=== PATIENT | male | born 1940 | race Caucasian/White ===

== ENCOUNTER → 2017-02-08 | Outpatient (CLI) | payer MEDICARE ==
[2017-02-08 12:09] LABS: ALT 101 U/L (21-72); AST 97 U/L (17-59); Cholesterol 149 mg/dL (<200); HDL Cholesterol 48 mg/dL (40-60); Triglycerides 61 mg/dL (<150)
== END | disposition home or self-care (01) ==
LOC: LABWHC1 10:56
PROVIDERS: ATTEND Family Medicine
DX: E78.00 Pure hypercholesterolemia, unspecified (principal)
CPT/HCPCS: 36415; 80061; 84450; 84460

== ENCOUNTER → 2017-02-12 | Outpatient (CLI) | payer MEDICARE ==
[2017-02-12 09:51] LABS: CH 33.4; CHCM 33.6; HCT 45.6 % (39.0-53.0); HDW 2.32; HGB 15.1 gm/dL (13.0-17.5); MCH 33.2 pg (25.0-35.0); MCHC 33.2 g/dL (31.0-37.0); Mean Platelet Volume 8.4; RBC 4.56 m/uL (4.30-5.90); RDW 12.7 % (11.5-15.5); WBC 5.5 k/uL (3.8-10.6)
[2017-02-12 10:11] LABS: ALT 95 U/L (21-72); AST 76 U/L (17-59); Alkaline Phosphatase 88 U/L (38-126); Anion Gap 8 mmol/L; Blood Urea Nitrogen 18 mg/dL (9-20); Calcium 8.7 mg/dL (8.4-10.2); Carbon Dioxide 25 mmol/L (22-30); Chloride 109 mmol/L (98-107); Cholesterol 133 mg/dL (<200); GGT 32 U/L (15-73); Glucose 102 mg/dL (74-99); HDL Cholesterol 44 mg/dL (40-60); Non-African American GFR(MDRD) >60 (>60 ml/min/1.73 sqM); Potassium 4.2 mmol/L (3.5-5.1); Sodium 142 mmol/L (137-145); Total Bilirubin 0.9 mg/dL (0.2-1.3); Total Protein 6.6 g/dL (6.3-8.2); Triglycerides 94 mg/dL (<150)
[2017-02-12 10:41] LABS: Hepatitis B Surface Ag Index 0.06
[2017-02-12 10:47] LABS: Hepatitis B Core IgM Index 0.04
[2017-02-12 10:58] LABS: Hepatitis C Virus IgG Index 0.05
[2017-02-12 11:01] LABS: Hepatitis C Virus IgG Ab Negative (Negative)
== END | disposition home or self-care (01) ==
LOC: LABWHC1 09:34
PROVIDERS: ATTEND Family Medicine
DX: R74.8 Abnormal levels of other serum enzymes (principal)
CPT/HCPCS: 36415; 80053; 80061; 80074; 82977; 85027

== ENCOUNTER → 2017-02-19 | Outpatient (CLI) | payer MEDICARE ==
[2017-02-19 10:55] LABS: ALT 96 U/L (21-72); AST 80 U/L (17-59)
--- NOTE | 2017-02-20 00:46 | US ---
EXAMINATION TYPE: US carotid duplex BILAT DATE OF EXAM: 02/19/2017 2:46 PM COMPARISON: NONE CLINICAL HISTORY: 76-year-old male I65.29 OCCLUSION AND STENOSIS OF CAROTID ARTERY. Follow up exam, h istory of TIA. TECHNIQUE: Carotid duplex ultrasound examination. Indirect Doppler criteria was utilized. FINDINGS: Mild to moderate atherosclerotic changes noted at the bifurcations. EXAM MEASUREMENTS: RIGHT: Peak Systolic Velocity (PSV) cm/sec ----- Right CCA: 64.8 ----- Right ICA: 207.5 ----- Right ECA: 181.8 ICA/CCA ratio: 3.2 RIGHT: End Diastole cm/sec ----- Right CCA: 16.0 ----- Right ICA: 47.2 ----- Right ECA: 18.3 LEFT: Peak Systolic Velocity (PSV) cm/sec ----- Left CCA: 111.5 ----- Left ICA: 100.4 ----- Left ECA: 119.4 ICA/CCA ratio: 0.9 LEFT: End Diastole cm/sec ----- Left CCA: 25.5 ----- Left ICA: 41.0 ----- Left ECA: 12.8 VERTEBRALS (direction of flow): Right Vertebral: Antegrade Left Vertebral: Antegrade IMPRESSION: Measurements suggest a moderate (50-69%) stenosis of the proximal right ICA as seen previously. Criteria for Assigning % of Stenosis / Diameter reduction (Estimation based on the indirect measurements of the internal carotid artery velocities (ICA PSV). 1. Normal (no stenosis)=ICA PSV < 125 cm/s: ratio < 2.0: ICA EDV<40 cm/s. 2. Less than 50% stenosis=ICA PSV < 125 cm/s: ratio < 2.0: ICA EDV<40 cm/s. 3. 50 to 69% stenosis=ICA PSV of 125 to 230 cm/s: ration 2.0 ? 4.0: ICA EDV 40-100 cm/s. 4. Greater than 70% stenosis to near occlusion= ICA PSV > 230 cm/s: ratio > 4.0: ICA EDV > 100 cm/s. 5. Near occlusion= ICA PSV velocities may be low or undetectable: variable ratio and ICA EDV. 6. Total occlusion=unable to detect flow.
== END | disposition home or self-care (01) ==
LOC: RADUSWWP 09:23
PROVIDERS: ATTEND Family Medicine
DX: I65.29 Occlusion and stenosis of unspecified carotid artery (principal); R94.5 Abnormal results of liver function studies
CPT/HCPCS: 36415; 84450; 84460; 93880

== ENCOUNTER → 2017-02-26 | Outpatient (CLI) | payer MEDICARE ==
[2017-02-26 12:08] LABS: ALT 80 U/L (21-72); AST 74 U/L (17-59)
== END | disposition home or self-care (01) ==
LOC: LABWHC1 11:17
PROVIDERS: ATTEND Family Medicine
DX: R94.5 Abnormal results of liver function studies (principal)
CPT/HCPCS: 36415; 84450; 84460

== ENCOUNTER → 2017-03-29 | Outpatient (CLI) | payer MEDICARE ==
[2017-03-29 10:35] LABS: ALT 53 U/L (21-72); AST 54 U/L (17-59); Cholesterol 160 mg/dL (<200); Creatine Kinase 196 U/L (55-170); HDL Cholesterol 51 mg/dL (40-60); Triglycerides 65 mg/dL (<150)
== END | disposition home or self-care (01) ==
LOC: LABWHC1 09:36
PROVIDERS: ATTEND Family Medicine
DX: E78.5 Hyperlipidemia, unspecified (principal); R89.9 Unspecified abnormal finding in specimens from other organs, systems and tissues
CPT/HCPCS: 36415; 80061; 82550; 84450; 84460

== ENCOUNTER → 2017-04-16 | Outpatient (CLI) | payer MEDICARE | END | disposition home or self-care (01) | LOC: LABWHC1 09:14 | PROVIDERS: ATTEND Family Medicine | DX: R89.9 Unspecified abnormal finding in specimens from other organs, systems and tissues (principal) | CPT/HCPCS: 36415; 82550 ==

== ENCOUNTER → 2017-04-23 | Outpatient (CLI) | payer MEDICARE | END | disposition home or self-care (01) | LOC: LABWHC1 08:53 | PROVIDERS: ATTEND Family Medicine | DX: R89.9 Unspecified abnormal finding in specimens from other organs, systems and tissues (principal) | CPT/HCPCS: 36415; 82550 ==

== ENCOUNTER → 2017-07-31 | Outpatient (CLI) | payer MEDICARE ==
[2017-07-31 10:07] LABS: Appearance,Urine Cloudy (Clear); Bilirubin,Urine Negative (Negative); Glucose,Urine (UA) Negative (Negative); Ketones,Urine Negative (Negative); Leukocyte Esterase,Urine Negative (Negative); Mucus,Urine Few /hpf; Nitrite,Urine Negative (Negative); PH, Urine 5.5 (5.0-8.0); Particle Count 3706; Protein,Urine Trace (Negative); Specific Gravity,Urine 1.019 (1.001-1.035); UA Billing (MACRO vs. MICRO) MICRO; WBC,Urine 1 /hpf (0-5)
[2017-07-31 10:18] LABS: ALT 44 U/L (21-72); AST 48 U/L (17-59); Alkaline Phosphatase 112 U/L (38-126); Anion Gap 8 mmol/L; Blood Urea Nitrogen 20 mg/dL (9-20); Calcium 9.1 mg/dL (8.4-10.2); Carbon Dioxide 25 mmol/L (22-30); Chloride 106 mmol/L (98-107); Cholesterol 170 mg/dL (<200); Glucose 102 mg/dL (74-99); HDL Cholesterol 47 mg/dL (40-60); Non-African American GFR(MDRD) >60 (>60 ml/min/1.73 sqM); Potassium 4.5 mmol/L (3.5-5.1); Sodium 139 mmol/L (137-145); Total Bilirubin 1.3 mg/dL (0.2-1.3); Total Protein 6.7 g/dL (6.3-8.2)
[2017-07-31 10:40] LABS: CH 34.6; HCT 51.8 % (39.0-53.0); HDW 2.21; HGB 16.1 gm/dL (13.0-17.5); MCH 32.8 pg (25.0-35.0); MCHC 31.1 g/dL (31.0-37.0); MCV 105.4 fL (80.0-100.0); Macrocytosis Slight; Mean Platelet Volume 9.4; RBC 4.92 m/uL (4.30-5.90); RDW 13.7 % (11.5-15.5); WBC 5.3 k/uL (3.8-10.6)
[2017-07-31 10:48] LABS: Prostate Specific Antigen 1.42 ng/mL (0.00-4.00)
[2017-07-31 11:11] LABS: Hemoglobin A1C 5.2 % (4.2-6.1)
== END | disposition home or self-care (01) ==
LOC: LABWHC1 09:23
PROVIDERS: ATTEND Family Medicine
DX: E78.00 Pure hypercholesterolemia, unspecified (principal); N40.0 Benign prostatic hyperplasia without lower urinary tract symptoms; R53.83 Other fatigue
CPT/HCPCS: 36415; 80053; 80061; 81001; 82306; 83036; 84153; 84443; 85027

== ENCOUNTER → 2017-09-06 | Outpatient (CLI) | payer MEDICARE ==
--- NOTE | 2017-09-06 11:35 | US ---
EXAMINATION TYPE: US carotid duplex BILAT DATE OF EXAM: 09/06/2017 COMPARISON: 02/19/2017 CLINICAL HISTORY: I65.29 Occlusion And Stenosis Of Unspecified Carot. Stenosis TECHNIQUE: Carotid duplex ultrasound examination. Indirect Doppler criteria was utilized. FINDINGS: Grayscale images show mild to moderate atherosclerotic change at the bifurcations. EXAM MEASUREMENTS: RIGHT: Peak Systolic Velocity (PSV) cm/sec ----- Right CCA: 69.9 ----- Right ICA: 182.4 ----- Right ECA: 233.0 ICA/CCA ratio: 2.6 RIGHT: End Diastole cm/sec ----- Right CCA: 16.0 ----- Right ICA: 48.5 ----- Right ECA: 29.5 LEFT: Peak Systolic Velocity (PSV) cm/sec ----- Left CCA: 97.9 ----- Left ICA: 78.1 ----- Left ECA: 91.2 ICA/CCA ratio: 0.8 LEFT: End Diastole cm/sec ----- Left CCA: 22.0 ----- Left ICA: 26.8 ----- Left ECA: 13.7 VERTEBRALS (direction of flow): Right Vertebral: Antegrade Left Vertebral: Antegrade Rhythm: Normal HAND CLOTH EXAMINER NOTES: Bilateral intimal thickening, plaque bilateral bulb and proximal ICA, elevated arabella ocities: right proximal, mid and distal ICA, and right proximal ECA, right ICA/CCA ratio 2.6, 50-69% stenosis. IMPRESSION: Measurements suggest a moderate proximal right ICA stenosis (50-69%). Criteria for Assigning % of Stenosis / Diameter reduction (Estimation based on the indirect measurements of the internal carotid artery velocities (ICA PSV). 1. Normal (no stenosis)=ICA PSV < 125 cm/s: ratio < 2.0: ICA EDV<40 cm/s. 2. Less than 50% stenosis=ICA PSV < 125 cm/s: ratio < 2.0: ICA EDV<40 cm/s. 3. 50 to 69% stenosis=ICA PSV of 125 to 230 cm/s: ration 2.0 ? 4.0: ICA EDV 40-100 cm/s. 4. Greater than 70% stenosis to near occlusion= ICA PSV > 230 cm/s: ratio > 4.0: ICA EDV > 100 cm/s. 5. Near occlusion= ICA PSV velocities may be low or undetectable: variable ratio and ICA EDV. 6. Total occlusion=unable to detect flow.
== END ==
LOC: RADUSWWP 09:31
PROVIDERS: ATTEND Family Medicine
DX: I65.21 Occlusion and stenosis of right carotid artery (principal)
CPT/HCPCS: 93880

== ENCOUNTER → 2017-09-24 | Outpatient (CLI) | payer MEDICARE ==
[2017-09-24 10:36] LABS: CH 32.3; CHCM 32.5; HCT 52.9 % (39.0-53.0); HDW 2.24; MCH 32.2 pg (25.0-35.0); MCHC 32.2 g/dL (31.0-37.0); Mean Platelet Volume 8.7; RBC 5.28 m/uL (4.30-5.90); RDW 13.3 % (11.5-15.5); WBC 7.7 k/uL (3.8-10.6)
[2017-09-24 10:44] LABS: MCV 100.1 fL (80.0-100.0)
== END | disposition home or self-care (01) ==
LOC: LABWHC1 10:11
PROVIDERS: ATTEND Family Medicine
DX: Z09 Encounter for follow-up examination after completed treatment for conditions other than malignant neoplasm (principal); Z86.73 Personal history of transient ischemic attack (TIA), and cerebral infarction without residual deficits
CPT/HCPCS: 36415; 82607; 85027

== ENCOUNTER → 2018-01-29 | Outpatient (CLI) | payer MEDICARE ==
[2018-01-29 11:01] LABS: HCT 45.5 % (39.0-53.0); HGB 15.3 gm/dL (13.0-17.5); MCH 32.8 pg (25.0-35.0); MCHC 33.6 g/dL (31.0-37.0); MCV 97.5 fL (80.0-100.0); Mean Platelet Volume 8.4; Platelet Count 152 k/uL (150-450); RBC 4.67 m/uL (4.30-5.90); RDW 12.2 % (11.5-15.5)
== END | disposition home or self-care (01) ==
LOC: LABWHC1 09:43
PROVIDERS: ATTEND Family Medicine
DX: R89.9 Unspecified abnormal finding in specimens from other organs, systems and tissues (principal)
CPT/HCPCS: 36415; 82607; 85027

== ENCOUNTER → 2018-02-14 | Outpatient (CLI) | payer MEDICARE ==
--- NOTE | 2018-02-14 10:45 | US ---
EXAMINATION TYPE: US carotid duplex BILAT DATE OF EXAM: 02/14/2018 COMPARISON: Carotid ultrasound January 04, 2017. CLINICAL HISTORY: I65.29 Occlusion and stenosis of carotid artery. EXAM MEASUREMENTS: RIGHT: Peak Systolic Velocity (PSV) cm/sec ----- Right CCA: 64.2 ----- Right ICA: 148.9 ----- Right ECA: 168.7 ICA/CCA ratio: 2.3 RIGHT: End Diastole cm/sec ----- Right CCA: 16.2 ----- Right ICA: 52.4 ----- Right ECA: 13.0 LEFT: Peak Systolic Velocity (PSV) cm/sec ----- Left CCA: 96.5 ----- Left ICA: 107.5 ----- Left ECA: 128.5 ICA/CCA ratio: 1.1 LEFT: End Diastole cm/sec ----- Left CCA: 26.7 ----- Left ICA: 41.3 ----- Left ECA: 18.7 VERTEBRALS (direction of flow): Right Vertebral: Antegrade Left Vertebral: Antegrade Rhythm: Normal A 9 mm cystic nodule with calcification or colloid is noted right thyroid lobe initially. There is pe rsistent moderate hypoechoic plaque right carotid bulb. There is persistent increased peak systolic v elocity and end-diastolic velocity with abnormal ratio on the right internal carotid artery. Grayscal e images show moderate eccentric plaque left carotid bulb. IMPRESSION: Persistent moderate to severe plaque right carotid bulb with hemodynamically significant stenosis estimated 50-69%. No significant change from prior. CTA or MRA of the neck could be perfo rmed to further evaluate and characterize if desired.
[2018-02-14 10:51] LABS: ALT 30 U/L (21-72); AST 52 U/L (17-59); Cholesterol 138 mg/dL (<200); HDL Cholesterol 45 mg/dL (40-60); LDL Cholesterol,Calculated 82 mg/dL (0-99); Triglycerides 57 mg/dL (<150)
== END | disposition home or self-care (01) ==
LOC: RADUSWWP 08:32
PROVIDERS: ATTEND Family Medicine
DX: I65.21 Occlusion and stenosis of right carotid artery (principal)
CPT/HCPCS: 36415; 80061; 84450; 84460; 93880

== ENCOUNTER → 2018-08-01 | Outpatient (CLI) | payer MEDICARE ==
[2018-08-01 10:14] LABS: Appearance,Urine Clear (Clear); Bilirubin,Urine Negative (Negative); Blood,Urine Negative (Negative); Color,Urine Yellow; Glucose,Urine (UA) Negative (Negative); Ketones,Urine Negative (Negative); Leukocyte Esterase,Urine Negative (Negative); Nitrite,Urine Negative (Negative); Protein,Urine Negative (Negative); Urobilinogen,Urine <2.0 mg/dL (<2.0)
[2018-08-01 10:17] LABS: HCT 50.4 % (39.0-53.0); HGB 16.1 gm/dL (13.0-17.5); MCH 32.5 pg (25.0-35.0); MCV 101.5 fL (80.0-100.0); Mean Platelet Volume 8.1; Platelet Count 153 k/uL (150-450); RBC 4.96 m/uL (4.30-5.90); RDW 12.4 % (11.5-15.5); WBC 5.9 k/uL (3.8-10.6)
[2018-08-01 15:39] LABS: Vitamin D 25 Hydroxy 33.4 ng/mL (30.0-100.0)
[2018-08-01 15:49] LABS: Albumin 4.3 g/dL (3.80-4.90); Albumin/Globulin Ratio 2.05 (1.20-2.10); Anion Gap 7.1 mmol/L (4.00-12.00); Calcium 8.9 mg/dL (8.7-10.3); Carbon Dioxide 21.9 mmol/L (21.6-31.8); Globulin 2.1 g/dL (2.1-3.7); LDL Cholesterol,Calculated 111.4 mg/dL (0.0-131.0); Potassium 4.5 mmol/L (3.5-5.5); Total Bilirubin 1.4 mg/dL (0.3-1.2); Total Protein 6.4 g/dL (6.2-8.2); VLDL Calculation 13.6 mg/dL (5.00-40.00)
[2018-08-01 15:58] LABS: Prostate Specific Antigen 1.3 ng/mL (0.0-6.5)
[2018-08-01 16:38] LABS: Hemoglobin A1C 5.3 % (4.0-6.0)
== END | disposition home or self-care (01) ==
LOC: LABWHC1 09:21
PROVIDERS: ATTEND Family Medicine
DX: Z00.01 Encounter for general adult medical examination with abnormal findings (principal); E78.5 Hyperlipidemia, unspecified; E53.9 Vitamin B deficiency, unspecified; R97.20 Elevated prostate specific antigen [PSA]
CPT/HCPCS: 36415; 80053; 80061; 81003; 82306; 82607; 83036; 84153; 84443; 85027

== ENCOUNTER → 2019-02-28 | Outpatient (CLI) | payer MEDICARE ==
[2019-02-28 09:40] LABS: HCT 47.1 % (39.0-53.0); HGB 15.8 gm/dL (13.0-17.5); MCH 32.8 pg (25.0-35.0); MCHC 33.6 g/dL (31.0-37.0); MCV 97.6 fL (80.0-100.0); Mean Platelet Volume 8.4; Platelet Count 156 k/uL (150-450); RBC 4.82 m/uL (4.30-5.90); RDW 12.3 % (11.5-15.5); WBC 6.1 k/uL (3.8-10.6)
== END | disposition home or self-care (01) ==
LOC: LABWHC1 09:25
PROVIDERS: ATTEND Family Medicine
DX: K62.5 Hemorrhage of anus and rectum (principal)
CPT/HCPCS: 36415; 85027

== ENCOUNTER → 2019-08-28 | Outpatient (CLI) | payer MEDICARE ==
[2019-08-28 11:50] LABS: Basophils % (A) 1 %; Eosinophils # (A) 0.1 k/uL (0-0.7); Eosinophils % (A) 2 %; HCT 47.1 % (39.0-53.0); HGB 15.6 gm/dL (13.0-17.5); Lymphocytes # (A) 1.2 k/uL (1.0-4.8); Lymphocytes % (A) 21 %; MCH 33.1 pg (25.0-35.0); MCHC 33.2 g/dL (31.0-37.0); MCV 99.8 fL (80.0-100.0); Mean Platelet Volume 8.6; Monocytes # (A) 0.5 k/uL (0-1.0); Monocytes % (A) 8 %; Neutrophils # (A) 3.6 k/uL (1.3-7.7); Neutrophils % (A) 66 %; Platelet Count 170 k/uL (150-450); RBC 4.72 m/uL (4.30-5.90); RDW 11.8 % (11.5-15.5); WBC 5.5 k/uL (3.8-10.6)
[2019-08-28 12:03] LABS: Appearance,Urine Clear (Clear); Bilirubin,Urine Negative (Negative); Blood,Urine Negative (Negative); Color,Urine Yellow; Glucose,Urine (UA) Negative (Negative); Ketones,Urine Negative (Negative); Leukocyte Esterase,Urine Negative (Negative); Nitrite,Urine Negative (Negative); Protein,Urine Negative (Negative); Specific Gravity,Urine 1.015 (1.001-1.035); Urobilinogen,Urine <2.0 mg/dL (<2.0)
[2019-08-28 17:30] LABS: African American GFR (CKD) 100.6 (60.0-200.0); Albumin/Globulin Ratio 2.11 (1.60-3.17); Anion Gap 8.8 mmol/L (4.00-12.00); BUN/Creat Ratio 28.75 Ratio (12.00-20.00); Calcium 8.8 mg/dL (8.7-10.3); Carbon Dioxide 22.2 mmol/L (21.6-31.8); Chol/HDL Ratio 3.78; Globulin 1.9 g/dL (1.6-3.3); LDL Cholesterol,Calculated 95.2 mg/dL (0.0-131.0); Non-African American GFR(CKD) 86.8 (60.0-200.0); Potassium 4.5 mmol/L (3.5-5.5); Total Bilirubin 1.2 mg/dL (0.2-1.2); Total Protein 5.9 g/dL (6.2-8.2); VLDL Calculation 15.8 mg/dL (5.00-40.00)
== END | disposition home or self-care (01) ==
LOC: LABWHC1 10:55
PROVIDERS: ATTEND Family Medicine
DX: E78.5 Hyperlipidemia, unspecified (principal); N40.0 Benign prostatic hyperplasia without lower urinary tract symptoms
CPT/HCPCS: 36415; 80053; 80061; 81003; 84153; 85025

== ENCOUNTER → 2020-03-22 | Outpatient (CLI) | payer MEDICARE ==
[2020-03-22 12:30] LABS: Chol/HDL Ratio 2.95; LDL Cholesterol,Calculated 68.2 mg/dL (0.0-131.0); VLDL Calculation 17.8 mg/dL (5.00-40.00)
== END | disposition home or self-care (01) ==
LOC: LABWHC1 07:10
PROVIDERS: ATTEND Family Medicine
DX: E78.5 Hyperlipidemia, unspecified (principal); N40.0 Benign prostatic hyperplasia without lower urinary tract symptoms
CPT/HCPCS: 36415; 80061; 82306; 84153; 84450; 84460

== ENCOUNTER 2020-07-23 08:41 | Day surgery (SDC) | payer MEDICARE ==
[2020-07-21 16:52] VITALS: BMI 23.2
[2020-07-23 08:59] VITALS: TEMP 97.4
[2020-07-23] MEDS: LACTATED RINGERS 1,000 ML IV SCH ×2 (09:12→09:25)
[2020-07-23] MEDS ORDERED: PROPOFOL 10 MG/ML 20 ML VIAL IV ONE (09:26)
[2020-07-23] MEDS ORDERED: LIDOCAINE 1% INJ 10MG/ML (20 ML MDV) ONE (09:26)
--- NOTE | 2020-07-23 09:58 | P.PCN ---
Date of Procedure: 07/23/20 Procedure(s) Performed: BRIEF HISTORY: Patient is a 79-year-old pleasant white male scheduled for an elective colonoscopy as a part of screening for colorectal neoplasia. Last colonoscopy was 7 years ago. PROCEDURE PERFORMED: Colonoscopy with snare polypectomy PREOPERATIVE DIAGNOSIS: Screening for colon cancer. IV sedation per Anesthesia. PROCEDURE: After informed consent was obtained, the patient, was brought into the endoscopy unit. IV sedation was administered by Anesthesia under continuous monitoring. Digital rectal examination was normal. Initially the Olympus CF-160 flexible video colonoscope was then inserted in the rectum, gradually advanced into the cecum without any difficulty. Careful examination was performed as the scope was gradually being withdrawn. Ileocecal valve and the appendiceal orifice were visualized and appeared normal. Prep was excellent. Mucosa of the cecum, a ppeared normal. On the ileocecal valve was a 5 mm sessile polyp removed by snare polypectomy. Rest of the ascending colon, transverse colon, descending colon, sigmoid colon, and rectum appeared normal. In the sigmoid: There was another 4-5 mm sessile polyp removed by snare polypectomy Moderate left-sided diverticulosis seen. Retroflexion was performed in the rectum and no lesions were noted. Patient tolerated the procedure well. IMPRESSION: 5 mm polyp on the ileocecal valve status post snare polypectomy 5 mm sessile; polyp status post polypectomy Moderate left-sided diverticulosis RECOMMENDATIONS: Findings of this examination were discussed with the patient as well as his family. He was advised to follow with the biopsy results. If the biopsy shows an adenoma he can have a repeat colonoscopy in 5 years.
[2020-07-23 10:02] VITALS: RESP 16
[2020-07-23 10:22] VITALS: BP 119/66; PULSE 59
== END 2020-07-23 10:43 | disposition home or self-care (01) ==
LOC: ORWHC2ENDO 08:41
PROVIDERS: ATTEND Internal Medicine Gastroenterology
DX: Z12.11 Encounter for screening for malignant neoplasm of colon (principal); D12.0 Benign neoplasm of cecum; D12.5 Benign neoplasm of sigmoid colon; K57.30 Diverticulosis of large intestine without perforation or abscess without bleeding; E78.5 Hyperlipidemia, unspecified; Z79.899 Other long term (current) drug therapy; Z79.82 Long term (current) use of aspirin; Z88.0 Allergy status to penicillin; Z88.2 Allergy status to sulfonamides; Z88.7 Allergy status to serum and vaccine; Z86.73 Personal history of transient ischemic attack (TIA), and cerebral infarction without residual deficits; Z91.89 Other specified personal risk factors, not elsewhere classified
CPT/HCPCS: 88305; 45385; J2001; J2704

== ENCOUNTER → 2020-09-09 | Outpatient (CLI) | payer MEDICARE ==
[2020-09-09 09:20] LABS: HCT 50.4 % (39.0-53.0); HGB 16.7 gm/dL (13.0-17.5); MCH 33.3 pg (25.0-35.0); MCHC 33.1 g/dL (31.0-37.0); MCV 100.7 fL (80.0-100.0); Mean Platelet Volume 9.6; Platelet Count 148 k/uL (150-450); RBC 5.01 m/uL (4.30-5.90); RDW 11.9 % (11.5-15.5); WBC 6.7 k/uL (3.8-10.6)
[2020-09-09 09:47] LABS: Appearance,Urine Clear (Clear); Bilirubin,Urine Negative (Negative); Blood,Urine Negative (Negative); Color,Urine Yellow; Glucose,Urine (UA) Negative (Negative); Ketones,Urine Negative (Negative); Leukocyte Esterase,Urine Negative (Negative); Nitrite,Urine Negative (Negative); Protein,Urine Negative (Negative); Specific Gravity,Urine 1.018 (1.001-1.035); Urobilinogen,Urine <2.0 mg/dL (<2.0)
[2020-09-09 15:30] LABS: ALT 31 U/L (10-49); AST 40 U/L (14-35); African American GFR (CKD) 83.8 (60.0-200.0); Albumin/Globulin Ratio 2.14 (1.60-3.17); Alkaline Phosphatase 90 U/L (41-126); Calcium 9.4 mg/dL (8.7-10.3); Carbon Dioxide 26.7 mmol/L (21.6-31.8); Chloride 106 mmol/L (96-109); Cholesterol 155 mg/dL (0-200); Globulin 2.1 g/dL (1.6-3.3); Glucose 102 mg/dL (70-110); LDL Cholesterol,Calculated 88.6 mg/dL (0.0-131.0); Non-African American GFR(CKD) 72.3 (60.0-200.0); Potassium 4.3 mmol/L (3.5-5.5); Sodium 140 mmol/L (135-145); Total Bilirubin 1.3 mg/dL (0.2-1.2); Total Protein 6.6 g/dL (6.2-8.2)
[2020-09-09 15:40] LABS: Prostate Specific Antigen 1.3 ng/mL (0.0-6.5)
[2020-09-09 15:50] LABS: Folate, Serum >24.0 ng/mL
== END | disposition home or self-care (01) ==
LOC: LABWHC1 07:55
PROVIDERS: ATTEND Family Medicine
DX: E78.5 Hyperlipidemia, unspecified (principal); N40.0 Benign prostatic hyperplasia without lower urinary tract symptoms; E55.9 Vitamin D deficiency, unspecified
CPT/HCPCS: 36415; 80053; 80061; 81003; 82306; 82607; 82746; 84153; 85027

== ENCOUNTER → 2021-03-18 | Outpatient (CLI) | payer MEDICARE ==
[2021-03-18 14:05] LABS: Appearance,Urine Clear (Clear); Bilirubin,Urine Negative (Negative); Blood,Urine Negative (Negative); Color,Urine Yellow; Glucose,Urine (UA) Negative (Negative); Ketones,Urine Negative (Negative); Leukocyte Esterase,Urine Negative (Negative); Nitrite,Urine Negative (Negative); Protein,Urine Negative (Negative); Specific Gravity,Urine 1.016 (1.001-1.035); Urobilinogen,Urine <2.0 mg/dL (<2.0)
[2021-03-18 20:24] LABS: HCT 47.2 % (39.6-50.0); HGB 15.3 g/dL (13.0-17.0); MCH 32.6 pg (27.0-32.0); MCHC 32.4 g/dL (32.0-37.0); MCV 100.6 fL (80.0-97.0); Mean Platelet Volume 12.6 fL (9.5-12.2); Platelet Count 137 X 10*3/uL (140-440); RBC 4.69 X 10*6/uL (4.40-5.60); RDW 12.8 % (11.5-14.5); WBC 6.99 X 10*3/uL (4.50-10.00)
[2021-03-18 21:13] LABS: African American GFR (CKD) 99.2 (60.0-200.0); Albumin 4.3 g/dL (3.80-4.90); Albumin/Globulin Ratio 1.72 (1.60-3.17); Anion Gap 7.5 mmol/L (4.00-12.00); BUN/Creat Ratio 23.75 Ratio (12.00-20.00); Carbon Dioxide 23.5 mmol/L (21.6-31.8); Chol/HDL Ratio 3.1; Globulin 2.5 g/dL (1.6-3.3); LDL Cholesterol,Calculated 88.6 mg/dL (0.0-131.0); Non-African American GFR(CKD) 85.6 (60.0-200.0); Potassium 4.4 mmol/L (3.5-5.5); Total Bilirubin 1.2 mg/dL (0.3-1.2); Total Protein 6.8 g/dL (6.2-8.2); VLDL Calculation 16.4 mg/dL (5.00-40.00)
[2021-03-18 21:21] LABS: Prostate Specific Antigen 1.2 ng/mL (0.0-6.5)
[2021-03-18 22:58] LABS: Hemoglobin A1C 5.4 % (4.0-6.0)
== END | disposition home or self-care (01) ==
LOC: LABWHC1 11:56
PROVIDERS: ATTEND Family Medicine
DX: Z13.1 Encounter for screening for diabetes mellitus (principal); N40.0 Benign prostatic hyperplasia without lower urinary tract symptoms; E78.5 Hyperlipidemia, unspecified; E55.9 Vitamin D deficiency, unspecified
CPT/HCPCS: 36415; 80053; 80061; 81003; 82306; 83036; 84153; 85027

== ENCOUNTER → 2021-06-02 | Outpatient (CLI) | payer MEDICARE ==
[2021-06-02 11:20] LABS: African American GFR (CKD) >90 (>60 ml/min/1.73 sqM); Anion Gap 8 mmol/L; Blood Urea Nitrogen 20 mg/dL (9-20); Carbon Dioxide 25 mmol/L (22-30); Chloride 107 mmol/L (98-107); Non-African American GFR(CKD) 86 (>60 ml/min/1.73 sqM); Potassium 4.6 mmol/L (3.5-5.1); Sodium 140 mmol/L (137-145)
[2021-06-02 11:36] LABS: HCT 46.9 % (39.0-53.0); MCH 35.1 pg (25.0-35.0); MCV 103.1 fL (80.0-100.0); Macrocytosis Slight; Mean Platelet Volume 9.7; Platelet Count 139 k/uL (150-450); RBC 4.55 m/uL (4.30-5.90); RDW 12.6 % (11.5-15.5); WBC 7.8 k/uL (3.8-10.6)
== END | disposition home or self-care (01) ==
LOC: LABPAT 10:20
PROVIDERS: ATTEND Internal Medicine Interventional Cardiology
DX: Z01.812 Encounter for preprocedural laboratory examination (principal); I25.10 Atherosclerotic heart disease of native coronary artery without angina pectoris
CPT/HCPCS: 36415; 80051; 82565; 84520; 85027

== ENCOUNTER 2021-06-15 06:06 | Day surgery (SDC) | payer MEDICARE ==
[2021-06-08 10:20] VITALS: BMI 23.1
[~2021-06-15 06:06] MED LIST: ALPRAZolam 0.25 MG TAB PO PRN; ALPRAZolam 0.5 MG TAB PO PRN; ASPIRIN 325 MG TAB PO STA; HEPARIN SODIUM,PORCINE 10,000 UNIT in SODIUM CHLORIDE 0.9% 1,000 ML IRRIGATION PRN; HEPARIN SODIUM,PORCINE 2,500 UNIT in SODIUM CHLORIDE 0.9% 250 ML IRRIGATION PRN; NITROGLYCERIN SL TABS 0.4 MG TAB SUBLINGUAL PRN; SODIUM CHLORIDE 0.9% 1,000 ML in EMPTY BAG 1 BAG IV ONE
[2021-06-15] MEDS ORDERED: VERAPAMIL 2.5 MG/ML 2 ML AMP ONE (07:23)
[2021-06-15] MEDS ORDERED: HEPARIN SODIUM 1,000 UN/ML (10ML VL) ONE (07:24)
[2021-06-15] MEDS ORDERED: LIDOCAINE 1% INJ 10MG/ML (20 ML MDV) ONE (07:24)
[2021-06-15] MEDS ORDERED: fentaNYL (PF) 50 MCG/ML 2 ML AMP ONE (07:34)
[2021-06-15] MEDS ORDERED: fentaNYL (PF) 50 MCG/ML 2 ML AMP IV ONE (08:05)
[2021-06-15] MEDS: MIDAZOLAM 2 MG/2 ML VIAL IV ONE ×2 (08:05→08:19)
[2021-06-15] MEDS ORDERED: LIDOCAINE 1% INJ 10MG/ML (10 ML MDV) IV ONE (08:05)
[2021-06-15] MEDS ORDERED: LIDOCAINE 1% INJ 10MG/ML (10 ML MDV) SQ ONE (08:05)
[2021-06-15] MEDS ORDERED: VERAPAMIL SYRINGE (5 MG/10 ML) INTRAARTER ONE (08:07)
[2021-06-15] MEDS: HEPARIN SODIUM 1,000 UN/ML (10ML VL) IV ONE ×2 (08:12→08:19)
[2021-06-15] MEDS ORDERED: CLOPIDOGREL 75 MG TAB ONE (08:19)
[2021-06-15] MEDS ORDERED: CLOPIDOGREL 75 MG TAB PO ONE (08:22)
[2021-06-15] MEDS ORDERED: IOPAMIDOL-370 125ML BTL INJ ONE (08:33)
[2021-06-15] MEDS ORDERED: MIDAZOLAM 2 MG/2 ML VIAL IV ONE (09:00)
[2021-06-15] MEDS ORDERED: IOPAMIDOL-370 100ML BTL INJ ONE ×2 (09:01→09:18)
[2021-06-15] MEDS ORDERED: ZOLPIDEM 5 MG TAB PO PRN (09:40)
[2021-06-15] MEDS ORDERED: MAG HYDROX/AL HYDROX/SIMETH 30 ML CUP PO PRN (09:40)
[2021-06-15] MEDS ORDERED: NITROGLYCERIN SL TABS 0.4 MG TAB SUBLINGUAL PRN (09:40)
[2021-06-15] MEDS ORDERED: RX INFO: IV CONTRAST WAS GIVEN 1 EACH MISC MISCELLANE PRN (09:40)
[2021-06-15] MEDS ORDERED: ATROPINE SULFATE 0.1 MG/ML 10ML SYRINGE IV PRN (09:40)
[2021-06-15] MEDS ORDERED: SODIUM CHLORIDE 0.9% 1,000 ML IV SCH (09:45)
[2021-06-15 10:39] LABS: Basophils % (A) 0 %; Eosinophils # (A) 0.1 k/uL (0-0.7); Eosinophils % (A) 1 %; HCT 46.3 % (39.0-53.0); HGB 15.9 gm/dL (13.0-17.5); Lymphocytes # (A) 1.4 k/uL (1.0-4.8); Lymphocytes % (A) 19 %; MCHC 34.5 g/dL (31.0-37.0); MCV 101.7 fL (80.0-100.0); Mean Platelet Volume 11.6; Monocytes # (A) 0.6 k/uL (0-1.0); Monocytes % (A) 7 %; Neutrophils # (A) 5.4 k/uL (1.3-7.7); Neutrophils % (A) 71 %; Platelet Count 146 k/uL (150-450); RBC 4.55 m/uL (4.30-5.90); WBC 7.6 k/uL (3.8-10.6)
--- NOTE | 2021-06-15 12:40 | CC ---
CARDIAC CATHETERIZATION REPORT Mr. Moura is a 80-year-old male with a known history of hyperlipidemia who recently underwent a chest CT as part of the evaluation of his melanoma and was found to have calcification in the coronaries with apical filling defect consistent with thrombus. He subsequently underwent myocardial perfusion imaging that revealed evidence of anterior wall fixed defect with a moderately impaired left ventricular systolic function. In view of that and in view of his history, recommendation was made regarding cardiac catheterization. The procedure as well as its risks and complications were discussed with the patient, who was in full understanding and agreement. PROCEDURE DESCRIPTION: Patient was brought to the skilled laborer in a fasting, semi-sedated state after receiving fentanyl and Benadryl and achieving a moderate conscious sedated state. Using Xylocaine anesthesia and Seldinger technique, a 6-Senegalese sheath was introduced in the right radial artery. Selective right and left coronary angiography was performed using 5-Senegalese 3-1/2 bend right and left Minor catheters. Multiple views were taken of the arteries, including hemiaxial views. Following that, catheters were removed and images were reviewed. FINDINGS: FLUOROSCOPY: There is significant calcification involving the LAD and the diagonal branch. LEFT MAIN: This is a short-sized vessel bifurcating into left circumflex and left anterior descending artery. Left main coronary artery has no evidence of high-grade stenosis. LEFT ANTERIOR DESCENDING ARTERY: This vessel is subtotally occluded in the proximal segment starting from the takeoff of the first septal director quality assurance and extending to the takeoff of the first diagonal branch. The diagonal branch has a 90% stenosis. The mid LAD has a 90% stenosis as well. The rest of the vessel has no high-grade stenosis. LEFT CIRCUMFLEX: This is a large nondominant vessel giving rise to a large obtuse marginal branch. After the takeoff of the first obtuse marginal branch, there is a second, smaller obtuse marginal branch that has a 50% plaque proximally. The rest of the vessel has no high-grade stenosis. RIGHT CORONARY ARTERY: This is a large dominant vessel bifurcating distally into PDA and posterolateral segment and branches. The ostium of the right coronary artery has a 50% plaque. The rest of the vessel has mild intimal disease without any evidence of high-grade stenosis. COLLATERALS: There is a collateral from the right coronary artery to the LAD through the septal director quality assurance. LEFT VENTRICULOGRAM: Left ventriculogram was not performed. CONCLUSION: 1. Calcified left anterior descending coronary artery. 2. Subtotally occluded LAD with significant stenosis in the mid LAD and the first diagonal branch. 3. Moderate disease in the ostium of the right coronary artery and the second obtuse marginal branch. RECOMMENDATIONS: At this time I would recommend proceeding with angioplasty and stenting of the LAD. The procedure as well as its risks and the complications were discussed with the patient, who is in full understanding and agreement. MMODL / IJN: [id number] /
--- NOTE | 2021-06-15 12:44 | PTCA ---
PERCUTANEOUSTRANS CORORONARY ANGIOGRAPHY DATE OF PROCEDURE: 06/15/2021 Mr. Moura is a 80-year-old male who was found to have evidence of anterior wall myocardial infarction with apical thrombus. He underwent cardiac catheterization and was found to have subtotally occluded proximal LAD with significant disease in the first diagonal branch. Recommendation was made regarding angioplasty and stenting. The procedure as well as its risks and complications were discussed with the patient, who was in full understanding and agreement. PROCEDURE DESCRIPTION: A 6-Faroese 3.75 EBU guiding catheter was introduced into the system. After cannulating the left main, a 0.014 balanced medium weight J-wire with the help of a straight microcatheter was advanced across the lesion, positioned distally. Subsequently the microcatheter was removed and a 2.25 x 12 mm NC Trek balloon was advanced and inflation in the proximal LAD was performed. Following that, an IVUS [place] [employer] red devil [place] catheter was introduced and images were obtained. Following that, the IVUS was removed and a 0.014 balanced medium weight J-wire was advanced into the diagonal branch and positioned distally. Subsequently a 2.25 x 12 mm Trek balloon was advanced and two inflations at 10 atmospheres were done. Subsequently the balloon was removed and a 2.5 x 18 mm Xience Skypoint stent was advanced in the diagonal branch. It was deployed and post-dilated at 14 atmospheres. After removing the balloon, a 2.5 x 18 mm Xience Skypoint stent was advanced to the mid LAD, deployed and post-dilated at 16 atmospheres. Following that the balloon was removed and a 3.0 x 33 mm Xience Skypoint stent was advanced proximally, deployed and post-dilated at 16 atmospheres. Following that, the balloon was removed and a 3.5 x 12 mm NC Trek balloon was advanced and inflation in the proximal segment of the stent to 12 atmospheres was done. After the last inflation, after appropriate wait, the balloon and the guidewire were withdrawn back into the guiding catheter. Images were obtained and repeated. Those images revealed stable successful stenting. At that point, the guiding catheter, the balloon and the guidewire were removed. The sheath was removed. Hemostasis was obtained with deployment of a TR band. There was no immediate complication. The patient was returned to his room in stable condition. Of note, the patient received a total of 6000 units of intravenous heparin. The ACT was followed. He also received an oral loading dose of clopidogrel. He had no significant chest pain or EKG changes with the inflations. RESULTS: 1. Successful stenting of the first diagonal branch with reduction of stenosis from 95% to 0%. 2. Successful stenting of the mid LAD with reduction of stenosis from 90% to 0%. 3. Successful stenting of the proximal LAD with reduction of stenosis from 99% to 0%. RECOMMENDATIONS: Patient will be continued on aspirin, Plavix, beta mandi, JUAN inhibitor and statin. Subsequently anticoagulant will be initiated because of the apical thrombus, and his aspirin will be stopped. Those findings and recommendations were discussed with the patient and his family, and they are in full understanding and agreement. Duration of sedation was 73 minutes. CIERA / EZEQUIELN: [id number] / [place]
--- NOTE | 2021-06-15 12:50 | LTR ---
June 15, 2021 To: Dr. Womack Re: Emmanuel Moura (44) Dear Dr. Womack, I had the pleasure of performing cardiac catheterization and coronary angioplasty and stenting on Mr. Moura at [facility] on June 15, and a full copy of the procedure note will be forwarded to you. In brief, he was found to have a subtotally occluded proximal LAD with significant disease in the diagonal branch. He underwent successful stenting of those vessels and he will be followed in regard to his LV systolic function. Down the road I will stop his aspirin and put him on Plavix and anticoagulation because of his apical thrombus. I am hopeful that this procedure will stabilize his status. Thank you again for allowing me to participate in this patient's care. Please feel free to call with any questions. Sincerely, Josette Villafuerte M.D. CIERA / KIRSTEN: [id number] /
[2021-06-15] MEDS ORDERED: METOPROLOL SUCCINATE (ER) 25 MG TAB.ER.24H PO SCH (17:30)
[2021-06-15] MEDS ORDERED: ATORVASTATIN 40 MG TAB PO SCH (21:00)
[2021-06-16 07:05] VITALS: RESP 18; TEMP 97.5
[2021-06-16 08:01] LABS: African American GFR (CKD) >90 (>60 ml/min/1.73 sqM); Anion Gap 5 mmol/L; Blood Urea Nitrogen 17 mg/dL (9-20); Carbon Dioxide 26 mmol/L (22-30); Chloride 107 mmol/L (98-107); Glucose 105 mg/dL (74-99); Non-African American GFR(CKD) >90 (>60 ml/min/1.73 sqM); Potassium 4.5 mmol/L (3.5-5.1); Sodium 138 mmol/L (137-145)
[2021-06-16] MEDS ORDERED: ASPIRIN 81 MG PO SCH (09:00)
[2021-06-16] MEDS ORDERED: PYRIDOXINE 50 MG TAB PO SCH (09:00)
[2021-06-16] MEDS ORDERED: CLOPIDOGREL 75 MG TAB PO SCH (09:00)
[2021-06-16 09:11] VITALS: BP 128/74; PULSE 54
--- NOTE | 2021-06-16 10:58 | PN ---
PROGRESS NOTE Mr. Morua is a 80-year-old male who was recently found to have an apical thrombus on a CT scan done at the [facility] and subsequently had abnormal myocardial perfusion imaging, underwent cardiac catheterization and was found to have subtotally occluded proximal LAD. He underwent stenting of that vessel in the proximal and mid segments in addition to the diagonal branch. He is doing well this morning. He is denying any chest pain. His breathing is stable. He denies any dizziness or palpitation. He denies any nausea. He continues on aspirin once a day, Lipitor 40 mg daily, Plavix 75 mg daily, Zestril 2.5 mg twice a day, metoprolol succinate 25 mg daily. PHYSICAL EXAMINATION: Blood pressure is 123/70 with a heart rate in the 50s. LUNGS: Clear. HEART: Regular rate and rhythm. S1, S2. No S3. No rub. ABDOMEN: Soft, nontender. EXTREMITIES: No edema. Right radial pulse intact. IMPRESSION: 1. Status post stenting of the LAD and diagonal branch. 2. Ischemic cardiomyopathy. 3. Hyperlipidemia. RECOMMENDATIONS: Patient will be discharged home today and followed as an outpatient. Down the road we will stop the aspirin and will initiate anticoagulation in view of the apical thrombus. MMODL / IJN: [id number] /
== END 2021-06-16 09:45 | disposition home or self-care (01) ==
LOC: CATHCVL 06:06 → 6NMEDSUR 09:16 → CATHCVL 06-16 09:45
PROVIDERS: ATTEND Internal Medicine Interventional Cardiology
DX: I25.10 Atherosclerotic heart disease of native coronary artery without angina pectoris (principal); E78.5 Hyperlipidemia, unspecified; I25.5 Ischemic cardiomyopathy; I51.3 Intracardiac thrombosis, not elsewhere classified
CPT/HCPCS: 92978; 93458; 80048; 85025; C9600; C9601; C1769 ×3; C1887 ×2; C1894; C1725 ×3; C1753; C1874 ×2; J2250; J3010; J1644; J2001; Q9967 ×2

== ENCOUNTER → 2021-09-13 | Outpatient (CLI) | payer MEDICARE ==
[2021-09-13 11:49] LABS: Appearance,Urine Clear (Clear); Bilirubin,Urine Negative (Negative); Blood,Urine Negative (Negative); Color,Urine Yellow; Glucose,Urine (UA) Negative (Negative); Ketones,Urine Negative (Negative); Leukocyte Esterase,Urine Negative (Negative); Nitrite,Urine Negative (Negative); Protein,Urine Negative (Negative); Specific Gravity,Urine 1.021 (1.001-1.035); Urobilinogen,Urine <2.0 mg/dL (<2.0)
[2021-09-13 12:41] LABS: HCT 47.8 % (39.0-53.0); HGB 16.5 gm/dL (13.0-17.5); MCH 34.2 pg (25.0-35.0); MCHC 34.5 g/dL (31.0-37.0); MCV 98.9 fL (80.0-100.0); Mean Platelet Volume 9.6; Platelet Count 171 k/uL (150-450); RBC 4.84 m/uL (4.30-5.90); RDW 12.5 % (11.5-15.5); WBC 7.2 k/uL (3.8-10.6)
[2021-09-13 16:22] LABS: Chol/HDL Ratio 4.41 Ratio; LDL Cholesterol,Calculated 111.9 mg/dL (0.0-131.0)
[2021-09-13 16:56] LABS: ALT 30 U/L (10-49); AST 50 U/L (14-35); African American GFR (CKD) 94.5 (60.0-200.0); Albumin 4.3 g/dL (3.8-4.9); Albumin/Globulin Ratio 1.65 (1.60-3.17); Alkaline Phosphatase 115 U/L (41-126); BUN/Creat Ratio 18.78 Ratio (12.00-20.00); Blood Urea Nitrogen 16.9 mg/dL (9.0-27.0); Calcium 9.3 mg/dL (8.7-10.3); Carbon Dioxide 18.3 mmol/L (20.0-27.5); Chloride 106 mmol/L (96-109); Globulin 2.6 g/dL (1.6-3.3); Glucose 99 mg/dL (70-110); Non-African American GFR(CKD) 81.5 (60.0-200.0); Potassium 4.8 mmol/L (3.5-5.5); Sodium 141 mmol/L (135-145); Total Protein 6.9 g/dL (6.2-8.2)
== END | disposition home or self-care (01) ==
LOC: LABWHC1 09:36
PROVIDERS: ATTEND Internal Medicine Interventional Cardiology
DX: E78.2 Mixed hyperlipidemia (principal); N40.0 Benign prostatic hyperplasia without lower urinary tract symptoms; E78.5 Hyperlipidemia, unspecified; R73.03 Prediabetes
CPT/HCPCS: 36415; 80053; 80061; 81003; 83036; 84153; 85027

== ENCOUNTER → 2022-01-31 | Outpatient (CLI) | payer MEDICARE ==
[2022-01-31 15:05] LABS: ALT 20 U/L (10-49); AST 34 U/L (14-35); Albumin 4.1 g/dL (3.8-4.9); Albumin/Globulin Ratio 1.57 (1.60-3.17); Alkaline Phosphatase 81 U/L (41-126); BUN/Creat Ratio 17.85 Ratio (12.00-20.00); Blood Urea Nitrogen 15.6 mg/dL (9.0-27.0); Chloride 109 mmol/L (96-109); Chol/HDL Ratio 2.58 Ratio; Globulin 2.6 g/dL (1.6-3.3); Glucose 99 mg/dL (70-110); LDL Cholesterol,Calculated 53.2 mg/dL (0.0-131.0); Non-African American GFR(CKD) 81.9 (60.0-200.0); Potassium 4.4 mmol/L (3.5-5.5); Sodium 141 mmol/L (135-145); Total Protein 6.7 g/dL (6.2-8.2); VLDL Calculation 12.34 mg/dL (5.00-40.00)
== END | disposition home or self-care (01) ==
LOC: LABWHC1 08:11
PROVIDERS: ATTEND Nurse Practitioner Adult Health
DX: I25.5 Ischemic cardiomyopathy (principal); E78.2 Mixed hyperlipidemia
CPT/HCPCS: 36415; 80053; 80061

== ENCOUNTER → 2022-08-14 | Outpatient (CLI) | payer MEDICARE ==
[2022-08-14 10:08] LABS: Appearance,Urine Clear (Clear); Bilirubin,Urine Negative (Negative); Blood,Urine Negative (Negative); Color,Urine Yellow; Glucose,Urine (UA) Negative (Negative); Ketones,Urine Negative (Negative); Leukocyte Esterase,Urine Negative (Negative); Nitrite,Urine Negative (Negative); Protein,Urine Negative (Negative); Urobilinogen,Urine <2.0 mg/dL (<2.0)
[2022-08-14 15:27] LABS: Basophils # (A) 0.04 X 10*3/uL (0.00-0.10); Basophils % (A) 0.7 %; Eosinophils # (A) 0.05 X 10*3/uL (0.04-0.35); Eosinophils % (A) 0.9 %; HCT 45.6 % (39.6-50.0); Immature Grans, Automated 0.4 %; Lymphocytes # (A) 1.26 X 10*3/uL (0.90-5.00); Lymphocytes % (A) 22.7 %; MCH 33.2 pg (27.0-32.0); MCHC 32.9 g/dL (32.0-37.0); MCV 100.9 fL (80.0-97.0); Mean Platelet Volume 11.2 fL (9.5-12.2); Monocytes # (A) 0.66 X 10*3/uL (0.20-1.00); Monocytes % (A) 11.9 %; NRBC Per 100 WBC 0 /100 WBCS (0.0-0.0); Neutrophils # (A) 3.53 X 10*3/uL (1.80-7.70); Neutrophils % (A) 63.4 %; Platelet Count 146 X 10*3/uL (140-440); RBC 4.52 X 10*6/uL (4.40-5.60); RDW 12.1 % (11.5-14.5); WBC 5.56 X 10*3/uL (4.50-10.00)
[2022-08-14 16:19] LABS: ALT 16 U/L (10-49); AST 32 U/L (14-35); African American GFR (CKD) 93.8 (60.0-200.0); Albumin/Globulin Ratio 1.48 (1.60-3.17); Alkaline Phosphatase 70 U/L (41-126); BUN/Creat Ratio 17.11 Ratio (12.00-20.00); Blood Urea Nitrogen 15.4 mg/dL (9.0-27.0); Carbon Dioxide 23.3 mmol/L (20.0-27.5); Chloride 107 mmol/L (96-109); Chol/HDL Ratio 2.52 Ratio; Globulin 2.7 g/dL (1.6-3.3); Glucose 94 mg/dL (70-110); LDL Cholesterol,Calculated 39.4 mg/dL (0.0-131.0); Non-African American GFR(CKD) 80.9 (60.0-200.0); Potassium 4.1 mmol/L (3.5-5.5); Sodium 139 mmol/L (135-145); Total Protein 6.7 g/dL (6.2-8.2)
== END | disposition home or self-care (01) ==
LOC: LABWHC1 08:18
PROVIDERS: ATTEND Internal Medicine Interventional Cardiology
DX: Z00.01 Encounter for general adult medical examination with abnormal findings (principal); Z13.1 Encounter for screening for diabetes mellitus; I25.5 Ischemic cardiomyopathy; E78.2 Mixed hyperlipidemia; N40.0 Benign prostatic hyperplasia without lower urinary tract symptoms
CPT/HCPCS: 36415; 80053; 80061; 81003; 82306; 83036; 84153; 84443; 85025; 87086

== ENCOUNTER → 2023-08-14 | Outpatient (CLI) | payer MEDICARE ==
[2023-08-14 11:32] LABS: ALT 24 U/L (10-49); AST 32 U/L (14-35); Chol/HDL Ratio 2.26 Ratio; LDL Cholesterol,Calculated 42.2 mg/dL (0.0-131.0); VLDL Calculation 11.28 mg/dL (5.00-40.00)
== END | disposition home or self-care (01) ==
LOC: LABWHC1 07:34
PROVIDERS: ATTEND Internal Medicine Interventional Cardiology
DX: E78.2 Mixed hyperlipidemia (principal)
CPT/HCPCS: 36415; 80061; 84450; 84460

== ENCOUNTER → 2023-09-25 | Outpatient (CLI) | payer MEDICARE ==
--- NOTE | 2023-10-02 14:04 | CT ---
EXAMINATION TYPE: CT chest wo con CT DLP: 365.6 mGycm, Automated exposure control for dose reduction was used. DATE OF EXAM: 09/25/2023 4:47 PM COMPARISON: No prior available at this institution. CLINICAL INDICATION:Male, 83 years old with history of R91.1 LUNG NODULE; PHH, Left lung nodule TECHNIQUE: Multiple axial images were obtained through the chest. Sagittal and coronal reformats were created for review. Contrast used: mL of (None if empty) Oral contrast used: (None if empty) FINDINGS: Exam is limited by lack of contrast. LOWER NECK: No significant findings. HEART: Heart is upper normal in size..Increased density within the coronary arteries likely moderate to severe calcifications and/or stents. Curvilinear calcification on the left, appears to be associa thee with the myocardium and can be seen with remote infarct and thinning of the myocardium towards th e LV apex. VASCULATURE: Moderate atherosclerotic calcification throughout the aorta, with mild calcifications l ikely involving the aortic valve. The ascending aorta is fusiform ectatic up to 3.6 cm. Descending ao rta is 2.6 cm. Bovine type arch configuration. Calcifications along the arch with mild narrowing at t he origin of the left subclavian artery. Pulmonary arteries not well assessed without contrast. Pulm onary trunk appears within normal limits for size, 2.4 cm.. MEDIASTINUM: No gross evidence of adenopathy. Possible small sliding hiatal hernia. LUNGS/ PLEURA: No pleural effusion or pneumothorax. Mild upper lobe emphysematous changes are suggest ed. There are mild to moderate predominantly subpleural reticular opacities throughout both lungs sug gestive of scarring/fibrosis, this may represent senescent changes or could possibly related be relat ed to ILD. No sizable nodule or mass is seen amongst this background. AIRWAY: Central airways are patent. MUSCULOSKELETAL: Moderate degenerative changes of the spine and shoulders. No clearly acute bony abn ormality. SOFT TISSUES: Unremarkable. UPPER ABDOMEN: Moderate calcifications of the upper abdominal aorta with mild narrowing of the celiac , SMA, bilateral renal arteries. There is the suggestion of a partially seen fusiform infrarenal AAA which measures as large as 3 cm as seen. Mild bilateral perinephric stranding. Mildly thickened adren als without evidence of mass. Tiny hypodensity in the central liver image 55, and possible even small er more vague hypodense focus more inferiorly on image 60 are too small to characterize but statistic ally most likely benign in the absence of a cancer history. IMPRESSION: 1. Chronic appearing lung changes with mild peripheral scarring/fibrosis bilaterally. 2. No acute infiltrate, pleural effusion, or pneumothorax. 3. No visualized suspicious sizable lung nodules. Follow-up as clinically warranted. Infarct. 4. Mild cardiomegaly. Moderate to severe coronary arterial calcifications and/or stents. Cardiac ciarra cification towards the LV apex can be sequela of previous infarct. 5. Moderate atherosclerotic calcification throughout the aorta. Partially imaged 3 cm infrarenal AAA .
== END | disposition home or self-care (01) ==
LOC: RADCTMAIN 14:40
PROVIDERS: ATTEND Surgery Surgical Oncology
DX: J98.4 Other disorders of lung (principal); I51.7 Cardiomegaly; C43.59 Malignant melanoma of other part of trunk; I71.43 Infrarenal abdominal aortic aneurysm, without rupture; I70.0 Atherosclerosis of aorta; I25.10 Atherosclerotic heart disease of native coronary artery without angina pectoris; R91.1 Solitary pulmonary nodule
CPT/HCPCS: 71250